=== PATIENT | female | born 1965 | race Caucasian/White ===

== ENCOUNTER 2024-07-02 17:58 | Emergency (ER) | payer OTHER, SELFPAY ==
[2024-07-02 18:09] VITALS: BP 137/68; PULSE 69; RESP 16; TEMP 37.2; O2SAT 100
--- NOTE | 2024-07-02 18:43 | ED_ITS ---
HPI - Skin/Abscess/Foreign Bdy General Chief complaint: Skin/Abscess/Foreign Body Stated complaint: Rash Time Seen by Provider: 07/02/24 18:35 Source: patient and RN notes reviewed Mode of arrival: ambulatory Limitations: no limitations History of Present Illness HPI narrative: Patient presents today after she was bit by a tick yesterday and has developed some redness around the puncture wound. States the tick was imbedded no more than 11 or 12 hours before she noticed it and it was properly removed. States the redness around the puncture wound has been growing in size today. No [id number] treatment prior to arrival. Patient states that a few years ago she did have a tick-borne illness and is wary about developing one again. Related Data Allergies Allergy/AdvReac Type Severity Reaction Status Date / Time No Known Allergies Allergy Verified 07/02/24 18:22 Review of Systems Review of Systems: CONSTITUTIONAL: Denies body aches, fever, chills, or sweats. EYES: Denies visual changes, redness, or discharge. ENT: Denies rhinorrhea, congestion, sore throat, or otalgia. CARDIOVASCULAR: Denies chest pain, palpitations, or edema. RESPIRATORY: Denies cough or dyspnea. GASTROINTESTINAL: Denies abdominal pain, nausea, vomiting, or diarrhea. GENITOURINARY: Denies dysuria or hematuria. SKIN: Tick bite MUSCULOSKELETAL: Denies back pain, joint pain, or myalgia. NEUROLOGIC: Denies headache, numbness, tingling, or weakness. PSYCH: Denies depression or anxiety. PMFSH Comments At time of signature, I have reviewed and agree with nursing past medical, surgical, social and family history unless otherwise noted. Please see nursing chart for further information. There is no relevant family history pertinent to the presenting complaint Exam Narrative: GENERAL: Well-appearing, well-nourished, and in no acute distress. HEAD: Normocephalic, atraumatic. EYES: EOMI. No redness or drainage. Conjunctivae normal. ENT: Mucous membranes pink and moist. NECK: Normal AROM. CHEST: No respiratory distress. SKIN: Warm, dry. Capillary refill normal. Normal skin turgor. 2.5 cm round area of erythema surrounding puncture wound to the left lateral hip area. No induration, edema, ecchymosis. No bull's-eye pattern. Mildly tender to palpation. No drainage. No fluctuance. NEURO: No focal deficits. Alert and oriented x3. Gait steady. PSYCH: Normal affect. No signs of depression or anxiety. Course Course Level of Care: Express Care Visit Vital Signs Vital signs: Vital Signs Temperature 99 F 07/02/24 18:09 Pulse Rate 69 07/02/24 18:09 Respiratory Rate 16 07/02/24 18:09 Blood Pressure 137/68 07/02/24 18:09 Pulse Oximetry 100 07/02/24 18:09 Temperature 99 F 07/02/24 18:09 Pulse Rate 69 07/02/24 18:09 Respiratory Rate 16 07/02/24 18:09 Blood Pressure 137/68 07/02/24 18:09 Pulse Oximetry 100 07/02/24 18:09 Reviewed MDM - Skin/Abscess/Foreign Bdy MDM Narrative Medical decision making narrative: Discussed with patient that she is unlikely to to have a tick-borne illness due to the short time that the tick was imbedded in her skin. The redness surrounding the puncture wound is likely due to an allergic reaction to the insect saliva or bite. Patient is very nervous about developing a tick-borne illness as she had 1 a few years ago. Will treat her with a 1 dose regimen doxycycline tonight. ED precautions given. Differential Diagnosis Differential diagnosis: Likely abscess of skin or subcutaneous tissue, urticaria, cellulitis, insect bites and other (Allergic reaction to insect bite) Critical Care Time Critical Care Time Critical Care Time: No Discharge Plan Discharge Clinical Impression: Tick bite Qualifiers: Encounter type: initial encounter Site of tick bite: pelvic region Qualified Code(s): S30.860A - Insect bite (nonvenomous) of lower back and pelvis, initial encounter Patient Disposition: Home, Self-Care Condition: Stable Instructions: Tick Bite (ED) Additional Instructions: You are unlikely to develop a tick-borne illness due to the short time that the tick was imbedded in your skin. Please take the doxycycline as a prophylactic. As discussed, please go to the ER if you develop any additional symptoms such as fever, headache, abdominal pain, sweats or chills. Your blood pressure was elevated above 120/80 today at Urgent Care. This puts you above the threshold for follow up. Please schedule a followup visit with your personal physician as soon as possible, for further evaluation and treatment. Even blood pressure exceeding 120/80 may indicate pre-hypertension. Prescriptions: New doxycycline hyclate 100 mg capsule 200 mg PO ONCE Qty: 2 0RF Follow-up/Referrals: PHYSICIAN,ASSISTANT ACTIVITIES DIRECTOR [Primary Care Provider] - Time of Disposition: 18:51
== END 2024-07-02 18:53 | disposition home or self-care (01) ==
PROVIDERS: Emergency Provider Nurse Practitioner
DX: S70.262A Insect bite (nonvenomous), left hip, initial encounter (principal); W57.XXXA Bitten or stung by nonvenomous insect and other nonvenomous arthropods, initial encounter
CPT/HCPCS: 99203; G0463